=== PATIENT | male | born 2000 | race Caucasian/White ===

== ENCOUNTER 2022-12-19 07:45 | Outpatient (CLI) | payer OTHER ==
[2022-12-19 21:28] LABS: CHLAMYDIA TRACHOMATIS DNA NEGATIVE (NEGATIVE)
[2022-12-19 21:29] LABS: NEISSERIA GONORRHOEAE DNA NEGATIVE (NEGATIVE); TRICHOMONAS VAGINALIS DNA NEGATIVE (NEGATIVE)
[2022-12-20 02:07] LABS: HCV AB Non Reactive (Non Reactive); HIV SCREEN 4TH GENERATION Non Reactive (Non Reactive)
[2022-12-20 06:10] LABS: RPR Non Reactive (Non Reactive)
[2022-12-26 14:09] LABS: HSV 1 IGG TYPE SPEC 1.41 index (0.00-0.90); HSV 2 IGG TYPE SPEC 1.07 index (0.00-0.90)
== END 2022-12-19 08:00 | disposition home or self-care (01) ==
LOC: LAB.N 07:45
PROVIDERS: ATTEND Family Medicine
DX: J02.9 Acute pharyngitis, unspecified (principal)
CPT/HCPCS: 36415; 81599; 86592; 86695; 86696; 86803; 87389; 87491; 87591; 87661